=== PATIENT | male | born 1945 | race Caucasian/White ===

== ENCOUNTER 2018-11-13 07:54 | Day surgery (SDC) | payer MEDICARE, OTHER ==
[2018-11-13] MEDS ORDERED: PROPOFOL INJ 200 MG/20 ML VIAL IV ONE (09:16)
[2018-11-13] MEDS ORDERED: LIDOCAINE 2% INJ-PF (20 MG/ML) 10 ML AMPUL ONE (09:16)
[2018-11-13] MEDS ORDERED: DIPHENHYDRAMINE HCL 50 MG/ML VIAL IV PRN (09:31)
[2018-11-13] MEDS ORDERED: PROMETHAZINE HCL INJ 25 MG/1 ML VIAL IV PRN ×2 (09:31)
[2018-11-13] MEDS ORDERED: MEPERIDINE HCL/PF INJ 25 MG/1 ML DISP.SYRIN IV PRN (09:31)
[2018-11-13] MEDS ORDERED: FENTANYL CITRATE INJ/PF 100 MCG/2 ML AMPUL IV PRN ×3 (09:31)
[2018-11-13] MEDS ORDERED: ONDANSETRON HCL INJ/PF 4 MG/2 ML SDV IV PRN (09:31)
[2018-11-13 11:43] VITALS: BP 156/78
--- NOTE | 2018-11-13 12:13 | Operative Report ---
Operative Report DATE OF SURGERY: 11/13/18 Operative Report: The risks, benefits and alternatives of the procedure including the risk of bleeding, perforation requiring surgery have been explained to the patient in detail and informed consent was obtained. The patient is brought back to the operating room and placed in a left, lateral decubital position. Timeout was called. Propofol medication is administered. A rectal examination is done which did not reveal any masses, tears or fissures. An Olympus videoscope was introduced into the patient's rectum. The scope was then carefully advanced all the way to the cecum. The cecum was identified by the usual anatomical landmarks of the ileocecal valve as well as the appendiceal office. Photodocumentation is obtained. The scope was then sequentially pulled back via the various segments of the colon including the ascending colon, hepatic flexure, transverse colon, splenic flexure, descending colon and finally into the rectosigmoid portions of the colon. Retroflexion maneuver is performed. The risks benefits and alternatives of the procedure explained to the patient in detail and informed consent is obtained.A GIF Olympus video scope was inserted into the patient's mouth and hypopharynx, the esophagus is identified intubated and insufflated, the scope was then advanced through the esophagus stomach and duodenum, retroflexion maneuver is done, the esophagus stomach and first and second portions of the duodenum examined. PREOPERATIVE DIAGNOSIS: Loss of appetite, weight loss. Personal history of polyps POSTOPERATIVE DIAGNOSIS: 1 ascending colon polyp removed via snare polypectomy and retrieved. 3 transverse colon polyps removed via snare polypectomy and retrieved. 4 rectal polyps removed via biopsy forceps. Significant diverticulosis without any evidence of diverticulitis. Internal hemorrhoids. Gastritis status post biopsy rule out Helicobacter pylori. Duodenitis OPERATION: Colonoscopy with snare polypectomy. Colonoscopy with biopsy. EGD with biopsy SURGEON: SAVANA CARTY ANESTHESIA: LMAC TISSUE REMOVED OR ALTERED: As noted above. COMPLICATIONS: None. ESTIMATED BLOOD LOSS: None. INTRAOPERATIVE FINDINGS: As noted above. PROCEDURE: Patient tolerated the procedure well. No immediate postprocedure complications are noted. Patient discharged in good condition. Discharge date 11/13/2018. Discharge diet: Regular. Discharge activity: Regular. 2-3-week follow-up to discuss findings. 1-2-year surveillance colonoscopy. Patient is instructed to call the office or proceed to the emergency room should there be any further problems or questions. Wait on pathology.
== END 2018-11-13 11:43 | disposition home or self-care (01) ==
LOC: OROUT 07:54
PROVIDERS: ATTEND Internal Medicine Gastroenterology
DX: K63.5 Polyp of colon (principal); D12.2 Benign neoplasm of ascending colon; D12.3 Benign neoplasm of transverse colon; K29.50 Unspecified chronic gastritis without bleeding; K29.80 Duodenitis without bleeding; K57.30 Diverticulosis of large intestine without perforation or abscess without bleeding; K64.8 Other hemorrhoids; K62.5 Hemorrhage of anus and rectum; Z86.010 Personal history of colon polyps; R63.4 Abnormal weight loss; R63.0 Anorexia; I10 Essential (primary) hypertension; E78.2 Mixed hyperlipidemia; G47.30 Sleep apnea, unspecified; E11.42 Type 2 diabetes mellitus with diabetic polyneuropathy; J45.20 Mild intermittent asthma, uncomplicated; Z79.899 Other long term (current) drug therapy; Z79.82 Long term (current) use of aspirin; Z79.84 Long term (current) use of oral hypoglycemic drugs; Z79.51 Long term (current) use of inhaled steroids; Z68.37 Body mass index [BMI] 37.0-37.9, adult
CPT/HCPCS: 43239; 45380; 45385; 36415; 82962; 84132; 88342 ×2; 88305 ×2; J2704; J3490; 813

== ENCOUNTER 2019-11-05 08:49 | Day surgery (SDC) | payer MEDICARE, OTHER ==
[2019-11-05] MEDS ORDERED: FENTANYL CITRATE INJ/PF 100 MCG/2 ML AMPUL ONE (11:35)
[2019-11-05] MEDS ORDERED: MIDAZOLAM 2 MG/2 ML INJ ONE (11:35)
[2019-11-05 14:27] VITALS: BP 129/63
--- NOTE | 2019-11-05 15:18 | RADIOLOGY REPORT (SQ) ---
EXAM DESCRIPTION: CT BIOPSY BONE MARROW, NEEDLE COMPLETED DATE/TIME: 11/05/2019 12:05 pm REASON FOR STUDY: MONOCLONAL GAMMOPATHY D47.2 MONOCLONAL GAMMOPATHY COMPARISON: None. FLUORO TIME: 5.3 seconds. 121 images submitted to PACS. LIMITATIONS: None. PROCEDURE: The procedure, risks, benefits, and alternatives were discussed with the patient in the p reprocedural area, and all questions were answered. Informed consent was obtained verbally and in wri ting. The patient was then brought to the CT suite, positioned prone on the CT gurney, and a time-out was p erformed. After that, axial images of the pelvis were obtained for targeting of the iliac tuberosity. Based on review of the axial images an appropriate access site was selected on the left buttock. The area around the selected access site was then prepped and draped 2% chlorhexidine utilizing stand taj sterile technique. After that, the access site was infiltrated 1% lidocaine and a skin incision w as made with a #11 blade. An 11 gauge Osteo-Site Roberts coaxial needle was then advanced into the sara ac tuberosity. After that, the inner stylet of the coaxial needle was replaced for a 13 gauge biopsy needle and 1 core sample was obtained. 10 mL of marrow aspirate were then collected through the cannu la of the coaxial needle. Once the aspirate was collected, the cannula of the Osteo-Site Roberts coaxi al needle was removed and axial images of the biopsied area were obtained to exclude an acute complic ation. The patient tolerated the procedure well without immediate complication. At the end of the procedure the patient's condition was unchanged from the preprocedural baseline. IV conscious sedation was administered at the direction of the performing physician by a derek vizcaino. 1 milligrams of Versed and 50 micrograms of fentanyl. Physiologic monitoring was provided befor e, during, and after sedation. The total sedation time was 30 minutes. Documentation of [id number] time performing proceduralist spent monitoring the patient: 5 minutes. IMPRESSION: Successful CT-guided bone marrow biopsy and aspiration. COMMENT: Patient medication list reviewed:Yes- Quality ID# 130:Eligible professional attests to docu menting in the medical record they obtained, updated, or reviewed the patient's current medications. Quality ID #76: The patient was prepped and draped using maximum sterile barrier technique including cap, mask, sterile gown, sterile gloves, a large sterile sheet, hand hygiene, and 2% Chlorhexidine fo r cutaneous antisepsis. When ultrasound is used, sterile ultrasound techniques are followed requiring sterile gel and sterile probes. Quality ID 145: Final reports for procedures using fluoroscopy that document radiation exposure delores gisela, or exposure time and number of fluorographic images (if radiation exposure indices are not avail able) Quality ID# 436: Final reports with documentation of one or more dose reduction techniques (e.g., Aut omated exposure control, adjustment of the mA and/or kV according to patient size, use of iterative r econstruction technique) TECHNICAL DOCUMENTATION: JOB ID: [id number] [employer]- All Rights Reserved Reading location - IP/workstation name: [email or web address]
== END 2019-11-05 14:22 | disposition home or self-care (01) ==
LOC: RAD 08:49
PROVIDERS: ATTEND Internal Medicine
DX: D47.2 Monoclonal gammopathy (principal); C90.00 Multiple myeloma not having achieved remission; M48.02 Spinal stenosis, cervical region; E11.9 Type 2 diabetes mellitus without complications; I10 Essential (primary) hypertension; E78.5 Hyperlipidemia, unspecified; G47.33 Obstructive sleep apnea (adult) (pediatric); G62.9 Polyneuropathy, unspecified
CPT/HCPCS: 82962; 38221; J2250; J3010

== ENCOUNTER → 2019-11-06 | Outpatient (CLI) | payer MEDICARE, OTHER ==
[2019-11-05 10:06] LABS: INTERNATIONAL RATION (INR) 1.15; PROTHROMBIN TIME 14.8 SEC (11.4-15.4)
[2019-11-05 10:07] LABS: HEMATOCRIT 33.9 % (37.9-51.0); HEMOGLOBIN 11.7 g/dL (13.5-17.0); MEAN CORPUSCULAR HEMOGLOBIN 30.4 pg (27.0-33.4); MEAN CORPUSCULAR HGB CONC 34.6 g/dL (32.0-36.0); MEAN CORPUSCULAR VOLUME 88 fl (80-97); PARTIAL THROMBOPLASTIN TIME 32.8 SEC (23.5-35.8); PLATELET COUNT 206 10^3/uL (150-450); RED BLOOD COUNT 3.85 10^6/uL (4.35-5.55); RED CELL DISTRIBUTION WIDTH 15.1 % (11.5-14.0); WHITE BLOOD COUNT 6.8 10^3/uL (4.0-10.5)
[2019-11-05 10:19] LABS: BLOOD UREA NITROGEN 12 mg/dL (7-20); POTASSIUM 3.5 mmol/L (3.6-5.0)
--- NOTE | 2019-11-06 15:11 | RADIOLOGY REPORT (SQ) ---
EXAM DESCRIPTION: BONE SURVEY COMPLETE COMPLETED DATE/TIME: 11/06/2019 12:33 pm REASON FOR STUDY: MONOCLONAL GAMMOPATHY (D47.2) D47.2 MONOCLONAL GAMMOPATHY Z79.899 OTHER LONG TER M (CURRENT) DRUG THERAPY Z79.01 PENITENTIARY (CURRENT) USE OF ANTICOAGULANTS COMPARISON: None. TECHNIQUE: Images of the axial and proximal appendicular skeleton are obtained, along with lateral s kull and frontal chest films. LIMITATIONS: None. FINDINGS: AP CHEST: No bony findings. Lungs are clear. LATERAL SKULL: No worrisome bone lesions. AP BOTH HUMERI: No worrisome bone lesions. TWO-VIEW LUMBAR SPINE: No worrisome bone lesions. Spondylosis with bridging marginal osteophytes. D egenerative disc disease. TWO-VIEW THORACIC SPINE: No worrisome bone lesions. Spondylosis with bridging marginal osteophytes. Degenerative disc disease. AP PELVIS: No worrisome bone lesions. AP BOTH FEMURS: No worrisome bone lesions. Left knee arthroplasty. OTHER: No other significant finding. IMPRESSION: NO WORRISOME BONE LESIONS. TECHNICAL DOCUMENTATION: JOB ID: [id number] [employer]- All Rights Reserved Reading location - IP/workstation name: [email or web address]
== END ==
LOC: RAD 12:42
PROVIDERS: ATTEND Internal Medicine
DX: D47.2 Monoclonal gammopathy (principal); Z79.01 Long term (current) use of anticoagulants; Z79.899 Other long term (current) drug therapy
CPT/HCPCS: 36415; 77075; 82565; 84132; 84520; 85027; 85610; 85730

== ENCOUNTER → 2019-11-19 | Outpatient (CLI) | payer MEDICARE, OTHER ==
--- NOTE | 2019-11-19 16:13 | RADIOLOGY REPORT (SQ) ---
EXAM DESCRIPTION: CHEST 2 VIEWS COMPLETED DATE/TIME: 11/19/2019 4:03 pm REASON FOR STUDY: SHORTNESS OF BREATH COMPARISON: None. EXAM PARAMETERS: NUMBER OF VIEWS: two views TECHNIQUE: Digital Frontal and Lateral radiographic views of the chest acquired. RADIATION DOSE: NA LIMITATIONS: none FINDINGS: LUNGS AND PLEURA: No opacities, masses or pneumothorax. No pleural effusion. MEDIASTINUM AND HILAR STRUCTURES: No masses or contour abnormalities. HEART AND VASCULAR STRUCTURES: Heart normal size. No evidence for failure. BONES: No acute findings. HARDWARE: None in the chest. OTHER: No other significant finding. IMPRESSION: NO ACUTE RADIOGRAPHIC FINDING IN THE CHEST. TECHNICAL DOCUMENTATION: JOB ID: [id number] [employer]- All Rights Reserved Reading location - IP/workstation name: [email or web address]
== END ==
LOC: RAD 15:54
PROVIDERS: ATTEND Internal Medicine
DX: R06.02 Shortness of breath (principal)
CPT/HCPCS: 71046

== ENCOUNTER 2020-04-06 02:35 | Emergency (ER) | payer MEDICARE ==
[2020-04-06 02:56] VITALS: BP 162/56
== END 2020-04-06 04:42 | disposition left against medical advice (07) ==
LOC: ER 02:35
DX: Z53.21 Procedure and treatment not carried out due to patient leaving prior to being seen by health care provider (principal)

== ENCOUNTER → 2020-04-06 | Outpatient (CLI) | payer MEDICARE, OTHER ==
[2020-04-06 13:29] LABS: APPEARANCE,URINE CLEAR; BILIRUBIN,URINE NEGATIVE (NEGATIVE); COLOR,URINE YELLOW; GLUCOSE, URINE >=500 mg/dL (NEGATIVE); KETONES,URINE NEGATIVE (NEGATIVE); LEUKOCYTE ESTERASE,URINE NEGATIVE (NEGATIVE); NITRITE,URINE NEGATIVE (NEGATIVE); PROTEIN,URINE NEGATIVE (NEGATIVE); URINE SPECIFIC GRAVITY 1.013; UROBILINOGEN,URINE NEGATIVE mg/dL (<2.0)
--- NOTE | 2020-04-06 13:39 | RADIOLOGY REPORT (SQ) ---
EXAM DESCRIPTION: KUB IMAGES COMPLETED DATE/TIME: 04/06/2020 12:34 pm REASON FOR STUDY: LEFT LOWER QUADRANT PAIN E78.5 HYPERLIPIDEMIA, UNSPECIFIED R10.32 LEFT LOWER AUGUSTIN DRANT PAIN R10.9 UNSPECIFIED ABDOMINAL PAIN COMPARISON: None. NUMBER OF VIEWS: One view. TECHNIQUE: Supine radiographic image of the abdomen acquired. LIMITATIONS: None. FINDINGS: BOWEL GAS PATTERN: Normal bowel gas pattern. No dilated loops. CALCIFICATIONS: Possible small upper calyceal calculus in the left kidney. SOFT TISSUES: No gross mass or suggestion of organomegaly. HARDWARE: None in the abdomen. BONES: No acute fracture. No worrisome bone lesions. OTHER: No other significant finding. IMPRESSION: Possible left renal calculus. No other significant finding. TECHNICAL DOCUMENTATION: JOB ID: [id number] 2010 [employer]- All Rights Reserved Reading location - IP/workstation name: [email or web address]
== END ==
LOC: OD 12:20
PROVIDERS: ATTEND Physician Assistant
DX: R10.32 Left lower quadrant pain (principal); E78.5 Hyperlipidemia, unspecified; R10.9 Unspecified abdominal pain; F32.0 Major depressive disorder, single episode, mild
CPT/HCPCS: 36415; 74018; 81001; 87086

== ENCOUNTER 2020-04-20 18:24 | Emergency (ER) | payer MEDICARE, OTHER ==
[2020-04-20] MEDS ORDERED: CLINDAMYCIN HCL 150 MG CAPSULE PO ONE (20:02)
[2020-04-20] MEDS ORDERED: DIPH/PERTUSS(ACELL)/TETANUS VAC/PF 0.5 ML SYR (>=10YO) IM ONE (20:05)
--- NOTE | 2020-04-20 20:07 | ER Document Report ---
HPI - HPI Patient complains to provider of: Dog bite Time Seen by Provider: 04/20/20 19:57 Onset: Other - This 74-year-old gentleman who was bitten by his own dog last Sunday has redness and tenderness to the affected area. Quality of pain: No pain Pain Level: 1 Associated Symptoms: None Exacerbated by: Denies Relieved by: Denies Past Medical History - General Information source: Patient - Social History Smoking Status: Unknown if Ever Smoked Cigarette use (# per day): No Chew tobacco use (# tins/day): No Smoking Education Provided: No Frequency of alcohol use: None Drug Abuse: None Lives with: Alone Family History: None - Past Medical History Cardiac Medical History: Reports: Hx Hypertension Denies: Hx Coronary Artery Disease, Hx Heart Attack Pulmonary Medical History: Reports: Hx Asthma, Hx Pneumonia - 2 YEARS AGO Denies: Hx Bronchitis, Hx COPD Neurological Medical History: Denies: Hx Cerebrovascular Accident, Hx Seizures Musculoskeletal Medical History: Reports Hx Arthritis - ALL OVER - Immunizations Hx Diphtheria, Pertussis, Tetanus Vaccination: No Vertical Provider Document - CONSTITUTIONAL Agree With Documented VS: Yes - INFECTION CONTROL TRAVEL OUTSIDE OF THE [place] IN LAST 30 DAYS: No - HEENT HEENT: Atraumatic, Conjuctival Injection, Normocephalic, PERRLA - NECK Neck: Normal Inspection - RESPIRATORY Respiratory: Breath Sounds Normal, No Respiratory Distress - CARDIOVASCULAR Cardiovascular: Regular Rate, Regular Rhythm - GI/ABDOMEN Gastrointestinal: Abdomen Soft, Abdomen Non-Tender - REPRODUCTIVE Male Genitalia: Normal Inspection - BACK Back: Normal Inspection - MUSCULOSKELETAL/EXTREMETIES Musculoskeletal/Extremeties: MAEW Notes: Tenderness to right medial wrist from a dog bite at the thenar space scantly warm patient does see Dr. Delmar kat does have a standing appointment on Fridays is reliable we will marked the area with a black magic marker patient was advised to return immediately for any redness outside of that area and to follow-up with Dr. Delmar kat if it stays within that area. - NEURO Level of Consciousness: Awake, Alert Motor/Sensory: No Motor Deficit - DERM Integumentary: Warm Course - Re-evaluation Re-evalutation: 04/20/20 20:05 we will marked the area with a black magic marker patient was advised to return immediately for any redness outside of that area and to follow-up with Dr. Delmar kat if it stays within that area. Discharge - Discharge Clinical Impression: Dog bite Qualifiers: Encounter type: initial encounter Qualified Code(s): W54.0XXA - Bitten by dog, initial encounter Disposition: HOME, SELF-CARE Instructions: Cellulitis ([facility]) Additional Instructions: Warm soaks 4-5 times a day. If the redness exceeds the black marker return to the emergency room immediately. If the redness stays within the blackened area please follow-up with Dr. Delmar kat on Sunday. Return to the emergency room for absolutely any change or worsening condition. Prescriptions: Clindamycin HCl [Cleocin HCl] 300 mg PO TID #30 capsule Referrals: AUSTYN QUINONES PA-C [Primary Care Provider] - Follow up as needed
== END 2020-04-20 20:13 | disposition home or self-care (01) ==
LOC: ER 18:24
DX: S61.551A Open bite of right wrist, initial encounter (principal); W54.0XXA Bitten by dog, initial encounter; I10 Essential (primary) hypertension; J45.909 Unspecified asthma, uncomplicated; Z23 Encounter for immunization
CPT/HCPCS: 99283; 90471; 90715; A9270

== ENCOUNTER → 2020-04-21 | Outpatient (CLI) | payer MEDICARE, OTHER ==
--- NOTE | 2020-04-21 13:18 | RADIOLOGY REPORT (SQ) ---
EXAM DESCRIPTION: CT ABD/PELVIS NO ORAL OR IV IMAGES COMPLETED DATE/TIME: 04/21/2020 10:06 am REASON FOR STUDY: RENAL CALCULI (N20.0) N20.0 CALCULUS OF KIDNEY COMPARISON: None. TECHNIQUE: CT scan of the abdomen and pelvis performed without intravenous or oral contrast. Images reviewed with lung, soft tissue, and bone windows. Reconstructed coronal and sagittal MPR images revi ewed. All images stored on PACS. All CT scanners at this facility use dose modulation, iterative reconstruction, and/or weight based d osing when appropriate to reduce radiation dose to as low as reasonably achievable (ALARA). [facility]: Dose Right [facility]: CareDose [facility]: Dose Right [facility]: Teradose 4D [facility]: [employer] RADIATION DOSE: CT Rad equipment meets quality standard of care and radiation dose reduction techniq ues were employed. CTDIvol: 26.1 mGy. DLP: 1431 mGy-cm.mGy. LIMITATIONS: None. FINDINGS: LOWER CHEST: No significant findings. No nodules or infiltrates. NON-CONTRASTED LIVER, SPLEEN, ADRENALS: Evaluation limited by lack of IV contrast. No identified sign ificant masses. Incidental note is made of scattered hepatic. PANCREAS: No masses. No peripancreatic inflammatory changes. GALLBLADDER: No identified stones by CT criteria. No inflammatory changes to suggest cholecystitis. RIGHT KIDNEY AND URETER: No suspicious masses. Assessment limited by lack of IV contrast. A single nonobstructing nephrolith is demonstrated. No hydronephrosis or hydroureter. LEFT KIDNEY AND URETER: No suspicious masses. Assessment limited by lack of IV contrast. A single n onobstructing nephrolith is demonstrated. Incidental note is made a simple cyst involving the inferi or pole. No hydronephrosis or hydroureter. AORTA AND RETROPERITONEUM: Marked atherosclerotic plaque. No aneurysm. No retroperitoneal masses or hemorrhage. BOWEL AND PERITONEAL CAVITY: Marked diverticular disease without focal inflammatory changes. No obst ruction. No mass. APPENDIX: Surgically absent. PELVIS, BLADDER, AND ABDOMINAL WALL:No abnormal masses. No free fluid. Bladder normal. BONES: No significant findings. OTHER: No other significant finding. IMPRESSION: Nonobstructive nephrolithiasis bilaterally. No evidence of acute intra-abdominal infect ious/inflammatory process. Chronic and incidental findings as detailed above. COMMENT: Quality ID # 436: Final reports with documentation of one or more dose reduction techniques (e.g., Automated exposure control, adjustment of the mA and/or kV according to patient size, use of iterative reconstruction technique) TECHNICAL DOCUMENTATION: JOB ID: [id number] 2010 [employer]- All Rights Reserved Reading location - IP/workstation name: [email or web address]
== END ==
LOC: RAD 09:39
PROVIDERS: ATTEND Physician Assistant
DX: N20.0 Calculus of kidney (principal)
CPT/HCPCS: 74176

== ENCOUNTER 2020-06-25 08:57 | Day surgery (SDC) | payer MEDICARE, OTHER ==
[2020-06-25 09:44] LABS: HEMATOCRIT 38.9 % (37.9-51.0); HEMOGLOBIN 13.8 g/dL (13.5-17.0); MEAN CORPUSCULAR HEMOGLOBIN 31.2 pg (27.0-33.4); MEAN CORPUSCULAR HGB CONC 35.5 g/dL (32.0-36.0); MEAN CORPUSCULAR VOLUME 88 fl (80-97); PLATELET COUNT 235 10^3/uL (150-450); RED BLOOD COUNT 4.43 10^6/uL (4.35-5.55); RED CELL DISTRIBUTION WIDTH 15.9 % (11.5-14.0); WHITE BLOOD COUNT 5.9 10^3/uL (4.0-10.5)
[2020-06-25 09:57] LABS: INTERNATIONAL RATION (INR) 1.08; PROTHROMBIN TIME 14.2 SEC (11.4-15.4)
[2020-06-25 10:05] LABS: BLOOD UREA NITROGEN 13 mg/dL (7-20)
[2020-06-25] MEDS ORDERED: FENTANYL CITRATE INJ/PF 100 MCG/2 ML AMPUL ONE (11:14)
[2020-06-25] MEDS ORDERED: MIDAZOLAM 2 MG/2 ML INJ ONE (11:14)
--- NOTE | 2020-06-25 16:14 | RADIOLOGY REPORT (SQ) ---
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 FLUORO TIME: 3.2 seconds. 64 images submitted to PACS. LIMITATIONS: None. PROCEDURE: The procedure, risks, benefits, and alternatives were discussed with the patient in the p reprocedural area, and all questions were answered. Informed consent was obtained verbally and in wri ting. The patient was then brought to the CT suite, positioned prone on the CT gurney, and a time-out was p erformed. After that, axial images of the pelvis were obtained for targeting of the iliac tuberosity. Based on review of the axial images an appropriate access site was selected on the buttock. The area around the selected access site was then prepped and draped with 2% chlorhexidine utilizing standard sterile technique. After that, the access site was infiltrated 1% lidocaine and a skin incis ion was made with a #11 blade. An 11 gauge Osteo-Site Roberts coaxial needle was then advanced into th e iliac tuberosity. After that, the inner stylet of the coaxial needle was replaced for a 13 gauge bi opsy needle and 1 core sample was obtained. 10 mL of marrow aspirate were then collected through the cannula of the coaxial needle. Once the aspirate was collected, the cannula of the Osteo-Site Roberts coaxial needle was removed and axial images of the biopsied area were obtained to exclude an acute c omplication. The patient tolerated the procedure well without immediate complication. At the end of the procedure the patient's condition was unchanged from the preprocedural baseline. IV conscious sedation was administered at the direction of the performing physician by a derek vizcaino. 1 milligrams of Versed and 50 micrograms of fentanyl. Physiologic monitoring was provided befor e, during, and after sedation. The total sedation time was 30 minutes. Documentation of [id number] time performing proceduralist spent monitoring the patient: 15 minutes. IMPRESSION: Successful CT-guided bone marrow aspiration and biopsy. COMMENT: Patient medication list reviewed: Yes- Quality ID# 130:Eligible professional attests to doc umenting in the medical record they obtained, updated, or reviewed the patient's current medications. Quality ID #76: The patient was prepped and draped using maximum sterile barrier technique including cap, mask, sterile gown, sterile gloves, a large sterile sheet, hand hygiene, and 2% Chlorhexidine fo r cutaneous antisepsis. When ultrasound is used, sterile ultrasound techniques are followed requiring sterile gel and sterile probes. Quality ID 145: Final reports for procedures using fluoroscopy that document radiation exposure delores gisela, or exposure time and number of fluorographic images (if radiation exposure indices are not avail able) Quality ID# 436: Final reports with documentation of one or more dose reduction techniques (e.g., Aut omated exposure control, adjustment of the mA and/or kV according to patient size, use of iterative r econstruction technique) TECHNICAL DOCUMENTATION: JOB ID: [id number] 2010 [employer]- All Rights Reserved rev Reading location - IP/workstation name: [email or web address]
[2020-06-25 16:35] VITALS: BP 131/63
== END 2020-06-25 14:05 | disposition home or self-care (01) ==
LOC: RAD 08:57
PROVIDERS: ATTEND Internal Medicine
DX: C90.00 Multiple myeloma not having achieved remission (principal); E87.6 Hypokalemia; M25.551 Pain in right hip; M81.0 Age-related osteoporosis without current pathological fracture; E11.42 Type 2 diabetes mellitus with diabetic polyneuropathy; E78.5 Hyperlipidemia, unspecified; I10 Essential (primary) hypertension; M19.90 Unspecified osteoarthritis, unspecified site; M48.02 Spinal stenosis, cervical region; Z77.098 Contact with and (suspected) exposure to other hazardous, chiefly nonmedicinal, chemicals; Z79.899 Other long term (current) drug therapy; Z79.01 Long term (current) use of anticoagulants
CPT/HCPCS: 36415; 82962; 84520; 82565; 85027; 85610; 85730; 38221; J2250; J3010

== ENCOUNTER 2020-10-23 16:08 | Emergency (ER) | payer MEDICARE, OTHER ==
[2020-10-23 17:03] VITALS: BP 193/82
--- NOTE | 2020-10-23 17:12 | ER Document Report ---
ED Medical Screen (RME) - General Chief Complaint: Arm Pain Stated Complaint: FLUID ON RIGHT ELBOW Time Seen by Provider: 10/23/20 17:06 Primary Care Provider: AUSTYN QUINONES PA-C [Primary Care Provider] - Follow up as needed Mode of Arrival: Ambulatory Information source: Patient Notes: HPI; 74-year-old male presents to the emergency room complaining of pain and swelling to his right elbow for the past 3 days. He denies any trauma or injury. No history of bursitis. 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 Denies any fevers. PE: Alert and oriented x3. Lungs: Clear to auscultation without rales, rhonchi, wheezes. Heart: Regular rate rhythm without murmurs, rubs, gallops. Right elbow with moderate amount of swelling, warm and tender to palpation. No active discharge or draining noted. Positive right radial pulse. I have greeted and performed a rapid initial assessment of this patient. A comprehensive ED assessment and evaluation of the patient, analysis of test results and completion of the medical decision making process will be conducted by additional ED providers. I have specifically instructed the patient or f amily members with the patient to immediately return to any nursing staff should anything change in the patient's condition or with their chief complaint. TRAVEL OUTSIDE OF THE [place] IN LAST 30 DAYS: No - Related Data Allergies/Adverse Reactions: lisinopril Allergy (Verified 06/25/20 09:22) Swelling of Throat spironolactone Adverse Reaction (Verified 06/25/20 09:22) Unknown reaction Past Medical History - Past Medical History Cardiac Medical History: Reports: Hx Hypertension Denies: Hx Coronary Artery Disease, Hx Heart Attack Pulmonary Medical History: Reports: Hx Asthma, Hx Pneumonia - 2 YEARS AGO Denies: Hx Bronchitis, Hx COPD Neurological Medical History: Denies: Hx Cerebrovascular Accident, Hx Seizures Musculoskeltal Medical History: Reports Hx Arthritis - ALL OVER - Immunizations Hx Diphtheria, Pertussis, Tetanus Vaccination: No Physical Exam - Vital signs Vitals: Temp Pulse Resp BP Pulse Ox 98.1 F 61 16 193/82 H 98 10/23/20 16:59 10/23/20 16:59 10/23/20 16:59 10/23/20 16:59 10/23/20 16:59 Course - Vital Signs Vital signs: Temp Pulse Resp BP Pulse Ox 98.1 F 61 16 193/82 H 98 10/23/20 16:59 10/23/20 16:59 10/23/20 16:59 10/23/20 16:59 10/23/20 16:59 Doctor's Discharge - Discharge Referrals: AUSTYN QUINONES PA-C [Primary Care Provider] - Follow up as needed
--- NOTE | 2020-10-23 18:05 | RADIOLOGY REPORT (SQ) ---
EXAM DESCRIPTION: ELBOW RIGHT OVER 2 VIEWS IMAGES COMPLETED DATE/TIME: 10/23/2020 4:45 pm REASON FOR STUDY: swelling posterior elbow. No known injury. COMPARISON: None. NUMBER OF VIEWS: Four views. TECHNIQUE: AP, lateral, and both oblique radiographic images acquired of the right elbow. LIMITATIONS: None. FINDINGS: MINERALIZATION: Normal. BONES: No acute fracture or cortical disruption. Normal elbow joint alignment. JOINT: No elbow joint effusion. SOFT TISSUES: Soft tissue swelling at the olecranon. OTHER: No other significant finding. IMPRESSION: Olecranon bursitis. No acute fracture or dislocation of the elbow. TECHNICAL DOCUMENTATION: JOB ID: [id number] 2010 [employer]- All Rights Reserved Reading location - IP/workstation name: [email or web address]
== END 2020-10-23 18:06 | disposition left against medical advice (07) ==
LOC: ER 16:08
DX: M25.521 Pain in right elbow (principal); I10 Essential (primary) hypertension
CPT/HCPCS: 99281

== ENCOUNTER 2020-10-24 10:00 | Emergency (ER) | payer MEDICARE, OTHER ==
--- NOTE | 2020-10-24 11:34 | ER Document Report ---
ED Medical Screen (RME) - General Chief Complaint: Elbow Injury Stated Complaint: RIGHT ELBOW SWELLING Time Seen by Provider: 10/24/20 11:31 Primary Care Provider: AUSTYN QUINONES PA-C [Primary Care Provider] - Follow up as needed Mode of Arrival: Ambulatory Information source: Patient Notes: 74-year-old male presented to ED for swelling and pain to the right elbow. He does have a history of arthritis. He did recently 90 days ago have a bone marrow transplant for multiple myeloma. 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 He also has type 2 diabetes and neuropathy. He does not drink smoke or use any drugs. He did have an x-ray of the elbow yesterday but left before he got the blood work. I feel it is very important that he get the blood work and be seen by a provider since he has a history of multiple myeloma. He did have a ring on his right hand I have encouraged him to use soap and try to get the ring off as it is swollen at this time. IR may TRAVEL OUTSIDE OF THE [place] IN LAST 30 DAYS: No - Related Data Allergies/Adverse Reactions: lisinopril Allergy (Verified 10/24/20 10:53) Swelling of Throat spironolactone Adverse Reaction (Verified 10/24/20 10:53) Unknown reaction Past Medical History - Social History Chew tobacco use (# tins/day): No Frequency of alcohol use: None Drug Abuse: None - Past Medical History Cardiac Medical History: Reports: Hx Hypertension Denies: Hx Coronary Artery Disease, Hx Heart Attack Pulmonary Medical History: Reports: Hx Asthma, Hx Pneumonia - 2 YEARS AGO Denies: Hx Bronchitis, Hx COPD Neurological Medical History: Denies: Hx Cerebrovascular Accident, Hx Seizures Musculoskeltal Medical History: Reports Hx Arthritis - ALL OVER Past Surgical History: Reports: Hx Abdominal Surgery - umbilical hernia - Immunizations Hx Diphtheria, Pertussis, Tetanus Vaccination: No Physical Exam - Vital signs Vitals: Temp Pulse Resp BP Pulse Ox 98.3 F 61 20 173/77 H 95 10/24/20 10:17 10/24/20 10:17 10/24/20 10:17 10/24/20 10:17 10/24/20 10:17 Course - Vital Signs Vital signs: Temp Pulse Resp BP Pulse Ox 98.3 F 61 20 173/77 H 95 10/24/20 10:17 10/24/20 10:17 10/24/20 10:17 10/24/20 10:17 10/24/20 10:17 Doctor's Discharge - Discharge Referrals: AUSTYN QUINONES PA-C [Primary Care Provider] - Follow up as needed
[2020-10-24 12:32] LABS: ABSOLUTE EOSINOPHILS # (AUTO) 0.1 10^3/uL (0.0-0.6); ABSOLUTE LYMPHOCYTES (AUTO) 1.2 10^3/uL (0.5-4.7); ABSOLUTE MONOCYTES (AUTO) 0.7 10^3/uL (0.1-1.4); BASOPHILS % (AUTO) 0.4 % (0-2); EOSINOPHILS % (AUTO) 1.9 % (0-6); HEMATOCRIT 38.4 % (37.9-51.0); HEMOGLOBIN 13.5 g/dL (13.5-17.0); LYMPHOCYTES % (AUTO) 19.8 % (13-45); MEAN CORPUSCULAR HGB CONC 35.1 g/dL (32.0-36.0); MEAN CORPUSCULAR VOLUME 89 fl (80-97); MONOCYTES % (AUTO) 10.9 % (3-13); PLATELET COUNT 230 10^3/uL (150-450); RED BLOOD COUNT 4.34 10^6/uL (4.35-5.55); RED CELL DISTRIBUTION WIDTH 14.1 % (11.5-14.0); TOTAL CELLS COUNTED % (AUTO) 100 %
[2020-10-24 12:57] LABS: ALBUMIN 4.3 g/dL (3.5-5.0); ALKALINE PHOSPHATASE 68 U/L (38-126); ANION GAP 9 (5-19); ASPARTATE AMINO TRANSFERASE 19 U/L (17-59); BILIRUBIN,DIRECT 0.1 mg/dL (0.0-0.4); BILIRUBIN,TOTAL 0.4 mg/dL (0.2-1.3); BLOOD UREA NITROGEN 21 mg/dL (7-20); CALCIUM 9.3 mg/dL (8.4-10.2); CARBON DIOXIDE 22 mmol/L (22-30); CHLORIDE 104 mmol/L (98-107); CREATINE KINASE 66 U/L (55-170); GLUCOSE 133 mg/dL (75-110); POTASSIUM 4.5 mmol/L (3.6-5.0); TOTAL PROTEIN 7.3 g/dL (6.3-8.2); URIC ACID 7.1 mg/dL (3.5-8.5)
[2020-10-24] MEDS ORDERED: LIDOCAINE 1% INJ-PF (10 MG/ML) 30 ML SDV INJ ONE (14:36)
--- NOTE | 2020-10-24 16:50 | ER Document Report ---
Entered by RAMON BRUNNER SCRIBE 10/24/20 1426 Acting as scribe for:GRACY JORGENSEN MD ED Extremity Problem, Upper - General Chief Complaint: Elbow Injury Stated Complaint: RIGHT ELBOW SWELLING Time Seen by Provider: 10/24/20 11:31 Primary Care Provider: AUSTYN QUINONES PA-C [Primary Care Provider] - Follow up as needed Mode of Arrival: Ambulatory Information source: Patient Notes: This 74 year old male patient who is x93 days post bone marrow transplant for multiple myeloma presents to the ED today with complaints of right elbow swelli ng for the past x3 days. Patient states that he noticed pain to his elbow when he set it down and that it was hot to the touch yesterday. He states that he does rest his elbow on the padded console of his loveseat daily, but not on any hard surfaces. Denies fever, injury, or any open wounds. He was seen here yesterday with the same complaint and had an x-ray done, but left before receiving the results. TRAVEL OUTSIDE OF THE [place] IN LAST 30 DAYS: No - Related Data Allergies/Adverse Reactions: lisinopril Allergy (Verified 10/24/20 10:53) Swelling of Throat spironolactone Adverse Reaction (Verified 10/24/20 10:53) Unknown reaction Past Medical History - General Information source: Patient - Social History Smoking Status: Former Smoker Cigarette use (# per day): No Chew tobacco use (# tins/day): No Smoking Education Provided: No Frequency of alcohol use: None Drug Abuse: None Family History: Reviewed & Not Pertinent Patient has homicidal ideation: No - Past Medical History Cardiac Medical History: Reports: Hx Hypertension Pulmonary Medical History: Reports: Hx Asthma, Hx Pneumonia - 2 YEARS AGO Musculoskeletal Medical History: Reports Hx Arthritis - ALL OVER Past Surgical History: Reports: Hx Umbilical Hernia - Immunizations Hx Diphtheria, Pertussis, Tetanus Vaccination: No Hx Pneumococcal Vaccination: 10/29/17 Review of Systems - Review of Systems Constitutional: See HPI. denies: Fever EENT: No symptoms reported Cardiovascular: No symptoms reported Respiratory: No symptoms reported Gastrointestinal: No symptoms reported Genitourinary: No symptoms reported Male Genitourinary: No symptoms reported Musculoskeletal: See HPI, Joint pain, Joint swelling Skin: See HPI. denies: Lesions Hematologic/Lymphatic: No symptoms reported Neurological/Psychological: No symptoms reported -: Yes All other systems reviewed and negative Physical Exam - Vital signs Vitals: Temp Pulse Resp BP Pulse Ox 98.3 F 61 20 173/77 H 95 10/24/20 10:17 10/24/20 10:17 10/24/20 10:17 10/24/20 10:17 10/24/20 10:17 - General General appearance: Alert In distress: None - HEENT Head: Normocephalic, Atraumatic Eyes: Normal Pupils: PERRL - Respiratory Respiratory status: No respiratory distress Chest status: Nontender Breath sounds: Normal Chest palpation: Normal - Cardiovascular Rhythm: Regular Heart sounds: Normal auscultation Murmur: No Friction rub: No Gallop: None auscultated - Abdominal Inspection: Obese Distension: No distension Bowel sounds: Normal Tenderness: Nontender - Abdomen soft Organomegaly: No organomegaly - Back Back: Normal, Nontender - Extremities General lower extremity: Normal inspection. No: Edema Elbow: Other - Right olecranon process is swollen and warm to the touch. Motor and sensation intact. No open wounds - Neurological Neuro grossly intact: Yes Orientation: AAOx4 [place] Coma Scale Eye Opening: Spontaneous [place] Coma Scale Verbal: Oriented Roberto Coma Scale Motor: Obeys Commands [place] Coma Scale Total: 15 - Psychological Associated symptoms: Normal affect, Normal mood - Skin Skin Temperature: Warm Skin Moisture: Dry Skin Color: Normal Course - Re-evaluation Re-evalutation: 10/24/20 19:14 Patient resting comfortably. Patient has a soft tissue swelling and tenderness over the right olecranon bursa sac. 10/24/20 19:15 Patient was seen yesterday but due to some time issue patient left after x-rays were done. Patient returns to the ED today for further evaluation x-ray yesterday showed soft tissue swelling in the right olecranon bursa consistent with bursitis. No bony injury or other abnormality noted. - Vital Signs Vital signs: Temp Pulse Resp BP Pulse Ox 98.2 F 78 18 168/74 H 99 10/24/20 17:08 10/24/20 17:08 10/24/20 17:08 10/24/20 17:08 10/24/20 17:08 10/24/20 19:15 Vital signs stable afebrile - Laboratory Results Result Diagrams: 10/24/20 12:00 10/24/20 12:00 Laboratory Results Interpreted: 10/24/20 10/24/20 12:00 12:00 RBC 4.34 L RDW 14.1 H Sodium 135.3 L BUN 21 H Glucose 133 H Critical Laboratory Results Reviewed: No Critical Results - Radiology Results Critical Radiology Results Reviewed: No Critical Results - No chest pain no Procedures - Incision and Drainage Right Elbow Time completed: 16:40 Type: Simple Anesthetic type: 1% Lidocaine Blade size: Other - 19-gaug needle with 20 ml syringe I&D procedure: Betadine prep applied Incision Method: Incision made with needle Notes: 10/24/20 16:45 20 mL of serosanguineous liquid fluid drained. No complications. 10/24/20 16:45 There were no complications of the procedure antibiotic ointment bacitracin and a pressure dressing was applied sterilely. Aspirate is to the microbiology lab for culture and sensitivity Discharge - Discharge Clinical Impression: Olecranon bursitis of right elbow Condition: Stable Disposition: HOME, SELF-CARE Additional Instructions: Olecranon Bursitis You have olecranon bursitis. This is an inflammation of a fluid pouch (bursa) found over the tip of the elbow. This is usually due to repeated minor irritation or pressure directly on the bursa. On occasion, the bursitis can be due to infection (your doctor has checked for this). Sometimes the doctor decides to remove the fluid from the bursa with a needle. This may be done to check for infection or to ease the pressure caused by the fluid. The usual treatment is rest, local warmth, (or cold if the bursitis is caused by an acute injury), and antiinflammatory medication. Occasionally, an injection of cortisone is necessary. This type of bursitis can become very red and swollen WITHOUT any infection being present. However if pain increases significantly, if the swelling and redness greatly increase, or if you develop fever, you should call the doctor or return for re-examination. The aspirate that was obtained today is sent to the lab for culture and sensitivity. We have begun a prescription of clindamycin for you to take for 1 week and do recommend Tylenol if needed for pain try to not have great use of the right upper extremity elbow extension flexion over the next 2 to 3 days. Prescriptions: Clindamycin HCl 300 mg PO QID #28 capsule Referrals: BUNDLE,AUSTYN, PA-C [Primary Care Provider] - Follow up as needed I personally performed the services described in the documentation, reviewed and edited the documentation which was dictated to the scribe in my presence, and it accurately records my words and actions.
[2020-10-24 17:09] VITALS: BP 168/74
== END 2020-10-24 17:08 | disposition home or self-care (01) ==
LOC: ER 10:00
DX: M70.21 Olecranon bursitis, right elbow (principal); M79.89 Other specified soft tissue disorders; Z94.81 Bone marrow transplant status; Z88.8 Allergy status to other drugs, medicaments and biological substances; Z85.79 Personal history of other malignant neoplasms of lymphoid, hematopoietic and related tissues; Z87.891 Personal history of nicotine dependence; I10 Essential (primary) hypertension; J45.909 Unspecified asthma, uncomplicated
CPT/HCPCS: 99283; 36415; 87040; 87205; 87070; 82550; 84550; 85025; 87075; 80053; 23931; J3490